=== PATIENT | female | born 1965 | race Caucasian/White ===

== ENCOUNTER 2021-06-27 05:49 | Inpatient (IN) ==
--- NOTE | 2021-06-08 08:33 | History & Physical Report ---
Date of Service June 08, 2021 date of surgery: 06/27/21 Procedure: Right Total Knee Arthroplasty Surgeon: Terry William Assessment & Plan (1) Arthritis of right knee: Plan: Risks and benefits of procedure discussed in detail today, patient would like to proceed with a right total knee replacement at [facility] as scheduled. Will place on ASA 81mg po bid x 1 month post op, f/u 2 weeks post op for routine post- operative care and x-ray, sooner if having any problems. will make arrangements for HHPT at the time of discharge. At this point in time, has failed conservative measures and would like to proceed with surgical intervention. she will receive her pain medications from Dr Prakash Sandoval ([phone]) for her post op meds. The risks and benefits have been discussed including, but not limited to, risk of infection, nerve injury, stiffness, loss of motion, failure to improve, etc. Reasonable outcomes and options of treatment were discussed. An explanation of appropriate alternatives to the procedure that may be advantageous were discussed and their risks and benefits, as well as the risks and benefits of not proceeding with treatment. I offered to answer any additional inquiries concerning the treatment involved. All the patient's questions were answered. The patient is agreeable, understanding of the treatment plan and alternatives, and wishes to proceed with the treatment plan. History of Present Illness Chief Complaint: right knee pain Primary Care Provider: Birgit Penaloza MD Елена is a 56 year old female who complains of right knee pain, presents for pre-op evaluation prior to a right total knee replacement by Dr William at [facility]. she complains of pain, decreased range of motion, instability and stiffness in her right knee. Currently she states that the symptoms are moderate-severe and describes it as aching, sharp and throbbing. The symptoms are aggravated by ascending stairs, daily activities, first steps while awake walking. Prior NSAIDs include IBU and Aleve. She states that she has been treated with previous injections in the past without much relief, she is unsure if this was visco or cortisone. Allergies Allergy/AdvReac Type Severity Reaction Status Date / Time naloxone Allergy Hives Verified 03/28/21 14:29 Home Medications Medication Instructions Recorded Confirmed Type albuterol sulfate 90 mcg/actuation 1 inh INHALATION QID PRN 03/28/21 03/28/21 History aerosol inhaler aspirin 81 mg tablet,delayed 81 mg PO QAM 03/28/21 03/28/21 History release buprenorphine HCl 8 mg sublingual 8 mg SUBLINGUAL UD 03/28/21 03/28/21 History tablet furosemide 20 mg tablet (Lasix) 20 mg PO DAILY PRN 03/28/21 03/28/21 History multivitamin 1 tab PO QAM 03/28/21 03/28/21 History Past Med/Surg History Medical History Anxiety and depression Asthma rare use of PRN inh Bipolar disorder, manic Chronic UTI History of sleep apnea resolved with wt loss Osteoarthritis PTSD (post-traumatic stress disorder) Surgical History History of carpal tunnel release History of colonoscopy History of elbow surgery Rt History of esophagogastroduodenoscopy (EGD) History of gastric bypass History of hand surgery mult Rt History of tonsillectomy and adenoidectomy History of tubal ligation Social History Smoking Status: Current every day smoker Cigarettes Per Day: 5; Second Hand Exposure: No; Hx Alcohol Use: No Hx Substance Use: No (subutex for pain management per pt report) Preferred Language: Lithuanian Communication Ability: Effective Doctor Of Nurse Anesthesia Practice Required: No Beliefs That Will Affect Care: None Current Living Situation: Alone Feels Safe at Home: Yes Assistive Devices: Crutches and Denture - Upper Review of Systems Review of Systems: All systems reviewed & are unremarkable except as noted in HPI & below Constitutional: no fever, no chills and no sweats Respiratory: no cough and no dyspnea Cardiovascular: no chest pain, no dyspnea and no orthopnea Gastrointestinal: no abdominal pain, no nausea and no vomiting Musculoskeletal: as per Subjective / HPI Physical Exam Physical Exam: HT: 5ft 5in WT: 95kg Constitutional: WD/WN, vitals as above no acute distress Respiratory: normal respiratory effort, lungs clear to auscultation no respiratory distress, no labored breathing and does not use accessory muscles Cardiovascular: RRR, no murmur, no edema Gastrointestinal (Abdomen): normal bowel sounds, soft, nontender, no hepatosplenomegaly Musculoskeletal: Knee: + knee abnormal to inspection (RIGHT KNEE), + effusion (+1 effusion), + limited ROM of knee (ROM 0/3/110), + knee ROM with crepitation, + joint line tenderness (medial joint line) and + Sarah's sign positive; no deformity, no skin erythema, no ecchymosis, no valgus laxity, no varus laxity, anterior drawer test negative, Megha's sign negative and pivot shift test negative Results & Data Results & Data ([facility]) Diagnostic Findings Right Knee X-ray: Right knee series showing degenerative changes to the right knee, narrowing of the lateral compartment and patello-femoral joint with patellar spurring noted, osteophyte formation and subchondral sclerosis noted. no acute bony pathology noted.
--- NOTE | 2021-06-22 21:54 | Anesthesiology Consultation ---
Date of Service June 22, 2021 Assessment & Plan (1) Encounter for pre-operative examination: - COVID screening: Per assessment on 06/22: No known COVID-19 positive contacts or current COVID-19 related symptoms. Travel screen negative. Patient was Covid p ositive 04/05 (S report scanned into [employer]). Symptoms at time: runny nose, headache, fever > resolved. Surgeon arranging preop COVID testing. Awaiting results. - PCP office visit (06/12/21): "Pt has revised cardiac index score of No Risk Factors- 0.4%" Chart Review Chart Review: Acceptable Risk for Surgery and Patient NOT seen in Pre Admission Testing History Surgery Operation Date: 06/27/21 11:30 Proposed Procedures p Right Total Knee Arthroplasty - Terry William DO Height/Weight Height: 5 ft 5 in Weight: 92.533 kg Allergies Allergy/AdvReac Type Severity Reaction Status Date / Time naloxone Allergy Hives Verified 06/22/21 13:47 Medications Home Medications Medication Instructions Recorded Confirmed Last Taken albuterol sulfate 90 mcg/actuation 1 inh INHALATION QID PRN 03/28/21 06/22/21 Unknown aerosol inhaler aspirin 81 mg tablet,delayed 81 mg PO QAM 03/28/21 06/22/21 Unknown release buprenorphine HCl 8 mg sublingual 8 mg SUBLINGUAL UD 03/28/21 06/22/21 Unknown tablet furosemide 20 mg tablet (Lasix) 20 mg PO DAILY PRN 03/28/21 06/22/21 Unknown multivitamin 1 tab PO QAM 03/28/21 06/22/21 Unknown Past Medical History Medical History Anxiety and depression Asthma Bipolar disorder, manic Chronic UTI History of COVID-19 Dx 04/05/21 > symptoms at time: runny nose, headache, fever > resolved History of sleep apnea "Resolved" with weight loss Osteoarthritis PTSD (post-traumatic stress disorder) Past Surgical History Surgical History History of carpal tunnel release History of colonoscopy History of elbow surgery Rt History of esophagogastroduodenoscopy (EGD) History of gastric bypass History of hand surgery mult Rt History of tonsillectomy and adenoidectomy History of tubal ligation Social History Smoking Status: Current every day smoker tobacco type: cigarettes Smoking cigarettes per day: 3 cigs per day Do You Dip or Chew Tobacco: No Hx Alcohol Use: No Hx Substance Use: No substance use type: does not use Testing Laboratory Results 06/12/21 WBC 6.64 H/H 10.3/35.5 PLATELETS 335 HGBA1C 6.4% SODIUM 140 POTASSIUM 4.4 CHLORIDE 103 CO2 26 BUN 9 CREATININE 0.8 GLUCOSE 99 PT 12.9 PTT 32 INR 0.95 UA small leuk est, negative nitrite Electrocardiogram Date: 01/15/21 Findings: + NSR @ (72)
[2021-06-27] MEDS ORDERED: GABAPENTIN 600 MG DOSE PO SCH (06:00)
[2021-06-27] MEDS ORDERED: FAMOTIDINE 20 MG TAB PO SCH (06:00)
[2021-06-27] MEDS ORDERED: ceFAZolin 2000MG 2,000 MG/15 ML SYR IV SCH (06:00)
[2021-06-27] MEDS ORDERED: ROPIVACAINE 0.5% HCL/PF 150 MG, BUPIVACAINE 0.75% MPF 20 ML, EPINEPHrine 30MG/30ML (OR ... INSTIL SCH (06:00)
[2021-06-27] MEDS ORDERED: TRANEXAMIC ACID 1,000 MG **IV Pre-op IV SCH (06:00)
[2021-06-27] MEDS ORDERED: oxyCODONE HCL 10 MG TABCR (OxyCONTIN) PO SCH (06:00)
[2021-06-27] MEDS ORDERED: ACETAMINOPHEN 500 MG TAB PO SCH (06:00)
[2021-06-27] MEDS ORDERED: LR 500ML BOLUS, THEN 15ML/HR IV SCH (06:00)
[2021-06-27] MEDS ORDERED: TRANEXAMIC ACID 1,000 MG **IV Intra-op IV SCH (06:00)
[2021-06-27] MEDS ORDERED: METOCLOPRAMIDE HCL 10 MG TABLET PO SCH (06:00)
[2021-06-27] MEDS ORDERED: LIDOCAINE 2% 2 ML VIAL/AMP(20MG/ML) INFIL ONE (06:56)
[2021-06-27] MEDS ORDERED: fentaNYL citrate 100 MCG/2 ML VIAL ONE ×2 (06:56→09:48)
[2021-06-27] MEDS ORDERED: PROPOFOL IV EMULSION 10 MG/ML 20 ML VIAL IV ONE (06:56)
[2021-06-27] MEDS ORDERED: MIDAZOLAM HCL 1 MG/ML 2ML VIAL ONE (06:56)
--- NOTE | 2021-06-27 07:29 | History & Physical Bridge Note ---
Date of Service June 27, 2021 History & Physical Bridge Note I have examined the patient, reviewed the History & Physical and in the interval since the performance of the History & Physical I have noted the following changes of clinical significance: no changes noted
[2021-06-27] MEDS ORDERED: ONDANSETRON INJ 2 MG/ML 2 ML VIAL IV PRN ×2 (07:59→11:29)
[2021-06-27] MEDS ORDERED: fentaNYL citrate 100 MCG/2 ML VIAL IV PRN (07:59)
[2021-06-27] MEDS ORDERED: ePHEDrine sulfate 50 MG/ML AMP IV PRN (07:59)
[2021-06-27] MEDS ORDERED: ATROPINE SULFATE 0.1 MG/ML 10ML SYR IV PRN (07:59)
[2021-06-27] MEDS ORDERED: ROPIVACAINE 0.5% 5 MG/ML 30 ML VIAL ONE (08:14)
[2021-06-27] MEDS ORDERED: ORTHO JOINT ANESTHETIC ONE (08:35)
--- NOTE | 2021-06-27 09:46 | Operative Report ---
Post Operative Report Pre & Post Diagnosis Operation Date: 06/27/21 07:55 Pre-Op Diagnosis: Right Knee Osteoarthritis Post-Op Diagnosis: Right Knee Osteoarthritis I identified the patient and participated in the time-out.: Yes Procedure Operation Date: 06/27/21 07:55 Actual Procedures p Right Total Knee Arthroplasty utilizing [employer] jourbaldwin 2 patient matched total knee arthroplasty size femur 5 right tibia 5 right 10 mm polytwenty 9 oval patella- Terry William DO Surgeon Terry William DO Waste Elimination Dain ROSSI Estimated Blood Loss 5 Findings Consistent with Post-Op Diagnosis Patient presents with severe end-stage tricompartmental degenerative joint disease varus alignment subchondral sclerosis marginal osteophytes eburnated [id number] with varus alignment no response to conservative management Specimens Bone and cartilage Drains Medium bore Hemovac Anesthesia Type MAC Spinal Regional Disposition Accompanied Patient To Recovery: No Disposition: Recovery Room Indications Patient presents with severe end-stage tricompartmental degenerative joint disease right knee no response to conservative management the patient is a failed attempted conservative management occluding physical therapy anti- inflammatories relative rest activity modification corticosteroid injection viscosupplementation the above intraoperative findings are noted Description of Procedure After proper prepping and draping of the Right lower extremity anterior midline incision was made over the region of the extensor extensor mechanism after meticulous hemostasis was obtained and maintained in subcutaneous tissues a medial parapatellar incision was made The patella was subluxed lateralward the medial lateral gutter were cleaned from any hypertrophic synovitis and scar tissue of the distal femoral block was placed and the distal femoral osteotomy cut was made subsequently the chamfers anterior and posterior osteotomy cuts were made utilizing the 4-in-1 block the tibia was subsequently subluxed anteriorward medial and ateral meniscal remnants were excised in their entirety remnants of the anterior and posterior cruciate ligaments were excised in their entirety excellent exposure of the proximal tibia was obtained the tibial osteotomy guide was placed on the proximal tibial osteotomy cut was made once again the knee was irrigated with copious amounts of sterile saline solution the patella was subsequently everted lateralward thickened scar tissue around the patella was removed the patella was subsequently cut utilizing a freehand technique and was drilled prepared for final preparation and placement of patella socially flexion-extension gaps were checked and the equal and symmetric trials were placed to the appropriate femoral and tibial trials with poly-spacer being placed for equal flexion and extension gaps and full range of motion including extension to 0 and flexion to 140 the trial components after having been taken to recovery range of motion was subsequently removed meticulous hemostasis was obtained and maintained subsequently a knee block injection of joint cocktail including ropivacaine 0.5% 150 mg. Bupivacaine 0.5% epinephrine 1-200,030 mL's toradol 30 mg dexamethasone 4 mg ketamine 10 mg clonidine 100 micrograms normal saline solution 30 mg was infiltrated into the soft tissues of the posterior knee medial lateral gutters and periosteal synovium special attention was paid to protect neurovascular structures at all times subsequently trial components having been removed the knee was irrigated with sterile saline solution. debris was removed the proximal tibia was subsequently prepared and was made ready for the placement of the tibial component tibial component was also cemented and tamped into position the femoral component was subsequently placed and cemented in the position the patellar component was subsequently cemented in position because hemostasis once again obtained and maintained wound having been thoroughly irrigated with debridement and debridement lavage was performed as well as a medial parapatellar incision closed with #1 Vicryl in interrupted fashion subcutaneous was closed with #2 Vicryl skin was closed with skin clips. PA-C was necessary for prepping and drapping as well as wound closure of deep fascia Sub cutaneous tissue and skin and was necessary for the case. A sterile compressive dressing was placed patient was taken to recovery in stable condition of report dictated by Stewart I attest to the content of the Intraoperative Record and any orders documented therein. Any exceptions are noted below.Due to the complex nature of the procedure, the entire surgery was performed with the operational assistance of [PAC Name]. The liaison inspection laboratory assistant, under direct supervision, was involved in the actual performance of all aspects of the surgical procedure including hemostasis, tissue retraction and incision, instrument management, patient positioning, and wound closure. I attest to the content of the Intraoperative Record and any orders documented therein. Any exceptions are noted below.
[2021-06-27] MEDS ORDERED: ONDANSETRON INJ 2 MG/ML 2 ML VIAL ONE (09:47)
[2021-06-27] MEDS ORDERED: DEXAMETHASONE SOD INJ 4 MG/ML VIAL ONE (09:47)
[2021-06-27] MEDS ORDERED: GLYCOPYRROLATE 0.2 MG/ML VIAL ONE (09:58)
--- NOTE | 2021-06-27 11:03 | XRay Report ---
XR knee RT 1 or 2V routine CLINICAL HISTORY: Surgical Post Op TECHNIQUE: 2 views of the right knee were obtained. Comparison: None available at the time of this dictation. FINDINGS: Patient is status post total knee arthroplasty. Electronic device projects over the knee in multiple projections. Joint spaces are well-preserved. No joint effusion is seen. No soft tissue abnormality i s seen. IMPRESSION: No acute abnormality is seen in this postoperative image. ACT 112: Negative or not required by law. Electronically signed by: Daniel Keller M.D. 06/27/2021 11:01 AM
--- NOTE | 2021-06-27 11:19 | Anesthesiology Progress Note ---
Date of Service June 27, 2021 Anesthesia Post Procedure Vital Signs Vital Signs: Temp Pulse Pulse Resp BP Pulse Ox 06/27/21 11:10 80 16 132/75 95 06/27/21 11:00 97.2 F L 62 14 127/75 98 06/27/21 10:50 60 14 132/94 100 06/27/21 10:40 67 15 114/75 100 06/27/21 10:30 97.2 F L 72 15 116/68 100 06/27/21 06:00 99.1 F 72 20 144/65 H 97 Pain Intensity Right Knee: Pain Intensity: 5 Transfer of Care Handoff Completed per policy Notes Mental Status: alert / awake / arousable and participated in evaluation Patient Amnestic to Procedure: Yes Nausea / Vomiting: adequately controlled Pain: adequately controlled Airway Patency, RR, SpO2: stable & adequate BP & HR: stable & adequate Hydration State: stable & adequate Anesthetic Complications: no major complications apparent and Pt Satisfied with anesthetic care
[2021-06-27] MEDS ORDERED: MAGNESIUM HYDROXIDE SUSP 30 ML UDC PO PRN (11:29)
[2021-06-27] MEDS ORDERED: ALBUTEROL HFA 8 GM INHALER INH PRN (11:29)
[2021-06-27] MEDS ORDERED: bisacodyL 10 MG SUPP PR PRN (11:29)
[2021-06-27] MEDS ORDERED: FUROSEMIDE 20 MG TAB PO PRN (11:29)
[2021-06-27] MEDS: SODIUM CHLORIDE 0.9% 1000ML 1,000 ML IV SCH ×2 (12:27→22:30)
[2021-06-27] MEDS: KETOROLAC 30 MG/ML VIAL IV SCH ×2 (13:05→18:29)
[2021-06-27] MEDS: ACETAMINOPHEN 500 MG TAB PO SCH ×2 (13:34→21:55)
[2021-06-27] MEDS: ceFAZolin 2000MG 2,000 MG/15 ML SYR IV SCH (16:51)
[2021-06-27] MEDS: oxyCODONE HCL IR 5 MG TAB (IMMEDIATE RELEASE) PO PRN (19:40)
[2021-06-27] MEDS: ASPIRIN 81 MG ECTAB PO SCH (20:39)
[2021-06-27] MEDS: SENNA 8.6 MG TAB PO SCH (20:39)
[2021-06-27] MEDS: DOCUSATE SODIUM 100 MG CAP PO SCH (20:39)
[2021-06-28] MEDS: KETOROLAC 30 MG/ML VIAL IV SCH ×2 (01:19→05:59)
[2021-06-28] MEDS: ceFAZolin 2000MG 2,000 MG/15 ML SYR IV SCH (01:19)
[2021-06-28] MEDS: oxyCODONE HCL IR 5 MG TAB (IMMEDIATE RELEASE) PO PRN ×5 (03:40→19:40)
[2021-06-28] MEDS: ACETAMINOPHEN 500 MG TAB PO SCH ×3 (05:59→22:28)
[2021-06-28 06:34] LABS: Hematocrit (blood only) 28.8 % (37-47); Hemoglobin 8.9 g/dL (12.0-16.0); Mean Corpuscular Hemoglobin 23.7 pg (25-34); Mean Corpuscular Hgb Conc 30.9 g/dL (32-36); Mean Corpuscular Volume 76.8 fL (80-100); Mean Platelet Volume 10.1 fL (7.4-10.4); Platelet Count 307 K/uL (130-400); RDW Coefficient of Variation 17.8 % (11.5-14.5); RDW Standard Deviation 50.5 fL (36.4-46.3); Red Blood Count 3.75 M/uL (4.2-5.4); White Blood Count 12.09 K/uL (4.8-10.8)
[2021-06-28 06:56] LABS: Calcium 7.9 mg/dl (8.5-10.1); Creatinine Clr Calc Pharmacy 93.4 ml/min; Est GFR (African American) 100.7 ml/min; Est GFR (Non-African American) 86.9 ml/min; Potassium 3.6 mmol/L (3.5-5.1)
[2021-06-28] MEDS: DOCUSATE SODIUM 100 MG CAP PO SCH ×2 (07:34→19:41)
[2021-06-28] MEDS: ASPIRIN 81 MG ECTAB PO SCH ×2 (07:35→19:41)
[2021-06-28] MEDS: MULTIVITAMIN TAB PO SCH (07:35)
--- NOTE | 2021-06-28 09:32 | Orthopedic Progress Note ---
Date of Service June 28, 2021 Assessment & Plan (1) Arthritis of right knee: Plan: Postop day 1 status post right total knee arthroplasty PT/OT protocols. Weightbearing as tolerated. DVT prophylaxis- ASA bid, SCD's, VIC's. Pt has h/o gastric bypass but states she does take one baby asa daily. We discussed that she would need to take one tablet in the AM and PM for her DVT prophylaxis. Pt feels that won't be a problem but will call the office if she is having gastric upset. Pain management -she has long-term history with pain management. She has been taking Subutex for approximately 7 years and is in the process of weaning off. She does have a pain contract. She has discussed this upcoming surgery with her pain management team. They are okay with us initially writing for her pain control at this time. Patient has an appointment with her pain management team on the of this month. That point time, they will continue her pain management from there. DC planning- Home with home health services Admission and Anticipated Discharge Date Admission Date: June 27, 2021 Subjective Postop day 1 Patient currently sitting up eating breakfast. No complaints this morning. Pain is controlled. Denies shortness of breath, chest pain, lightheadedness. Physical Exam Physical Exam: Dressings are C/D/I. Calves soft,NT. NV intact. Toes mobile. Good DF/PF noted. Results & Data ([facility]) Vital Signs (Past 12 Hours) Vital Signs Temp Pulse Pulse Resp BP Pulse Ox 06/28/21 07:45 37 C 60 18 134/62 98 06/28/21 03:19 36.6 C 62 120/68 94 06/27/21 22:43 37 C 67 20 101/62 94 Laboratory Results Laboratory Results WBC 12.09 K/uL (4.8-10.8) H 06/28/21 06:03 RBC 3.75 M/uL (4.2-5.4) L 06/28/21 06:03 Hgb 8.9 g/dL (12.0-16.0) L 06/28/21 06:03 Hct 28.8 % (37-47) L 06/28/21 06:03 MCV 76.8 fL (80-100) L 06/28/21 06:03 MCH 23.7 pg (25-34) L 06/28/21 06:03 MCHC 30.9 g/dL (32-36) L 06/28/21 06:03 RDW Std Deviation 50.5 fL (36.4-46.3) H 06/28/21 06:03 RDW Coeff of Emily 17.8 % (11.5-14.5) H 06/28/21 06:03 Plt Count 307 K/uL (130-400) 06/28/21 06:03 MPV 10.1 fL (7.4-10.4) 06/28/21 06:03 Sodium 139 mmol/L (136-145) 06/28/21 06:03 Potassium 3.6 mmol/L (3.5-5.1) 06/28/21 06:03 Chloride 110 mmol/L (98-107) H 06/28/21 06:03 Carbon Dioxide 23 mmol/L (21-32) 06/28/21 06:03 Anion Gap 6 (3-11) 06/28/21 06:03 BUN 10 mg/dl (6-23) 06/28/21 06:03 Creatinine 0.77 mg/dl (0.6-1.2) 06/28/21 06:03 Est Cr Clr Drug Dosing 93.4 ml/min 06/28/21 06:03 Est GFR ( Amer) 100.7 ml/min 06/28/21 06:03 Est GFR (Non-Af Amer) 86.9 ml/min 06/28/21 06:03 BUN/Creatinine Ratio 13.0 (10-20) 06/28/21 06:03 Glucose 124 mg/dl (70-99(Fasting)) H 06/28/21 06:03 Calcium 7.9 mg/dl (8.5-10.1) L 06/28/21 06:03 SARS-CoV-2, RNA, NAAT NEGATIVE (NEGATIVE) 06/27/21 06:00 Blood Type O Positive 06/27/21 06:02 Antibody Screen NEGATIVE 06/27/21 06:02 Impressions Knee X-Ray 06/27/21 10:39 XR knee RT 1 or 2V routine CLINICAL HISTORY: Surgical Post Op TECHNIQUE: 2 views of the right knee were obtained. Comparison: None available at the time of this dictation. FINDINGS: Patient is status post total knee arthroplasty. Electronic device projects over the knee in multiple projections. Joint spaces are well-preserved. No joint effusion is seen. No soft tissue abnormality is seen. IMPRESSION: No acute abnormality is seen in this postoperative image. ACT 112: Negative or not required by law. Electronically signed by: Daniel Keller M.D. 06/27/2021 11:01 AM
[2021-06-28] MEDS: SENNA 8.6 MG TAB PO SCH (19:42)
[2021-06-28] MEDS: HYDROmorphone INJ 0.5 MG/0.5 ML SYR IV PRN (20:37)
[2021-06-29] MEDS: oxyCODONE HCL IR 5 MG TAB (IMMEDIATE RELEASE) PO PRN ×4 (00:01→17:59)
[2021-06-29] MEDS: HYDROmorphone INJ 0.5 MG/0.5 ML SYR IV PRN ×4 (00:49→21:47)
[2021-06-29] MEDS: ACETAMINOPHEN 500 MG TAB PO SCH ×3 (05:08→21:44)
[2021-06-29 06:32] LABS: Basophils # (auto) 0.01 K/uL (0-0.2); Basophils % (auto) 0.1 %; Eosinophils # (auto) 0.16 K/uL (0-0.5); Eosinophils % (auto) 1.7 %; Hematocrit (blood only) 29.1 % (37-47); Immature Granulocytes # (auto) 0.02 K/uL (0.00-0.02); Immature Granulocytes % (auto) 0.2 %; Lymphocytes % (auto) 23.4 %; Mean Corpuscular Hemoglobin 23.7 pg (25-34); Mean Corpuscular Hgb Conc 30.9 g/dL (32-36); Mean Corpuscular Volume 76.6 fL (80-100); Mean Platelet Volume 10.1 fL (7.4-10.4); Monocytes # (auto) 1.15 K/uL (0.11-0.59); Monocytes % (auto) 12.2 %; Neutrophils # (auto) 5.85 K/uL (1.4-6.5); Neutrophils % (auto) 62.4 %; Platelet Count 283 K/uL (130-400); RDW Standard Deviation 51.3 fL (36.4-46.3); White Blood Count 9.39 K/uL (4.8-10.8)
--- NOTE | 2021-06-29 06:50 | Orthopedic Progress Note ---
Date of Service June 29, 2021 Assessment & Plan (1) Arthritis of right knee: Plan: Postop day 2 status post right total knee arthroplasty PT/OT protocols. Weightbearing as tolerated. DVT prophylaxis- ASA bid, SCD's, VIC's. Pt has h/o gastric bypass but states she does take one baby asa daily. We discussed that she would need to take one tablet in the AM and PM for her DVT prophylaxis. Pt feels that won't be a problem but will call the office if she is having gastric upset. Pain management -she has long-term history with pain management. She has been taking Subutex for approximately 7 years and is in the process of weaning off. She does have a pain contract. She has discussed this upcoming surgery with her pain management team. They are okay with us initially writing for her pain control at this time. Patient has an appointment with her pain management team on the of this month. That point time, they will continue her pain management from there. DC planning- Home with home health services. will reassess her pain after PT today for poss d/c home with HHPT Admission and Anticipated Discharge Date Admission Date: June 27, 2021 Subjective Postop day 2 Patient currently laying in bed, tearful this am due to pain and anticipation of pain with PT today. Denies shortness of breath, chest pain, lightheadedness. Physical Exam Physical Exam: Vital Signs Temp 36.7 C 06/28/21 21:35 Pulse 82 06/28/21 21:35 Resp 18 06/28/21 21:35 BP 165/79 H 06/28/21 21:35 Pulse Ox 97 06/28/21 21:35 Intake & Output 06/28/21 06/28/21 06/29/21 06:59 18:59 06:59 Intake Total 1755 / 2860 1280 / 1800 520 / 1800 Output Total 525 / 2385 320 / 420 100 / 420 Balance 1230 / 475 960 / 1380 420 / 1380 Intake: IV 795 / 1100 885 / 885 Sodium Chlorid e 0.9% 1000ML 1, 795 / 1000 885 / 885 000 ml @ 100 m ls/hr IV .Q10H JOANA Rx#:[id number] Oral 960 / 960 395 / 915 520 / 915 Output: Urine 400 / 2200 200 / 200 Drain Output 125 / 180 120 / 220 100 / 220 Right Knee Hem ovac 125 / 180 120 / 220 100 / 220 Other: # Unmeasured Voi ds 1 3 Dressings are C/D/I. Calves soft,NT. NV intact. Toes mobile. Good DF/PF noted. Results & Data ([facility]) Vital Signs (Past 12 Hours) Vital Signs Temp Pulse Resp BP Pulse Ox 06/28/21 21:35 36.7 C 82 18 165/79 H 97
[2021-06-29] MEDS: ASPIRIN 81 MG ECTAB PO SCH ×2 (08:14→19:49)
[2021-06-29] MEDS: DOCUSATE SODIUM 100 MG CAP PO SCH ×2 (08:14→19:49)
[2021-06-29] MEDS: MULTIVITAMIN TAB PO SCH (08:15)
[2021-06-29] MEDS ORDERED: oxyCODONE HCL IR 5 MG TAB (IMMEDIATE RELEASE) PO PRN (12:16)
--- NOTE | 2021-06-29 13:02 | Pain Management Consultation ---
Date of Consultation June 29, 2021 Assessment & Plan (1) History of total knee arthroplasty: (2) Chronic pain: Oxycodone at 10mg x 2 hours is not adequately controlling the pain from the knee replacement. She has been off of Subutex for 4 days prior to the knee replacement. Given the long half life of Subutex the medication is still leaving her system. In her current circumstances it is reasonable to resume the Subutex for her baseline pain and continue the Oxycodone 10mg x 4 hours PRN breakthrough pain. * Patient will be resumed on Subutex for chronic pain complaints. * Oxycodone will remain at 10mg x 4 hours if needed for pain relief. Thank you for the consultation. History of Present Illness Attending Physician: Terry William, History of Present Illness This is a 56 year old female that had a right knee arthroplasty performed on 06/27/[address] William. She has been on Subutex 8mg 2 1/2 SL daily for chronic pain for the last 16 years. In preparation for the knee replacement she was instructed to discontinue the Subutex 06/23/21 and take oral Percocet for the few days leading up to the surgery. Postoperatively the pain is not controlled with Oxycodone 10mg x 4 hours PRN pain. Pain is currently 8/10. Pain Assessment Full Body Front + Back: 1. Allergies Allergy/AdvReac Type Severity Reaction Status Date / Time naloxone Allergy Hives Verified 06/27/21 06:08 Home Medications Medication Instructions Recorded Confirmed Type albuterol sulfate 90 mcg/actuation 1 inh INHALATION QID PRN 03/28/21 06/27/21 History aerosol inhaler aspirin 81 mg tablet,delayed 81 mg PO QAM 03/28/21 06/27/21 History release buprenorphine HCl 8 mg sublingual 8 mg SUBLINGUAL UD 03/28/21 06/27/21 History tablet furosemide 20 mg tablet (Lasix) 20 mg PO DAILY PRN 03/28/21 06/27/21 History multivitamin 1 tab PO QAM 03/28/21 06/27/21 History oxycodone-acetaminophen 10 mg-325 1 tab PO Q4H PRN 06/27/21 06/27/21 History mg tablet (Percocet) Patient History Medical History Anxiety and depression Asthma Bipolar disorder, manic Chronic UTI History of COVID-19 Dx 04/05/21 > symptoms at time: runny nose, headache, fever > resolved History of sleep apnea "Resolved" with weight loss Osteoarthritis PTSD (post-traumatic stress disorder) Surgical History History of carpal tunnel release History of colonoscopy History of elbow surgery Rt History of esophagogastroduodenoscopy (EGD) History of gastric bypass History of hand surgery mult Rt History of tonsillectomy and adenoidectomy History of tubal ligation Social History Smoking Status: Current every day smoker Cigarettes Per Day: 3 cigs per day; Second Hand Exposure: No; Do You Dip or Chew Tobacco: No; Tobacco Cessation Education Requested by Patient: No Hx Alcohol Use: No Hx Substance Use: No Preferred Language: Kosovan Communication Ability: Effective Communications Field Technician Required: No Beliefs That Will Affect Care: None Current Living Situation: Alone Other Information That Helps Us Care for You: No Feels Safe at Home: Yes Safety Concerns: Feels Safe At This Time Assistive Devices: None Physical Exam Physical Exam: GENERAL: This is a 56 year old female. Appears in moderate pain with right leg movement. HEAD/FACE: Normocephalic and atraumatic. EYES: No drainage or conjunctival injection. ENT: Nose without bleeding or discharge. Oral mucosa moist. NECK: Full ROM without apparent pain. No swelling or masses noted. RESPIRATORY: Patient with unlabored breathing. No signs of respiratory distress. CHEST/AXILLA: Chest movement symmetrical. No deformities noted. SKIN: [place], warm and dry. No rash noted. MS/EXTREMITY: No swelling, no deformities. + right knee replacement in knee brace. NEURO: Alert and appears oriented. Speech is fluent. Cranial Nerves are grossly intact. PSYCH: Alert, pleasant, affect is calm
[2021-06-29] MEDS: buprenorphine HCL 8 MG SUBL SL SCH ×2 (13:36→19:52)
[2021-06-29] MEDS: SENNA 8.6 MG TAB PO SCH (19:49)
[2021-06-30] MEDS: oxyCODONE HCL IR 5 MG TAB (IMMEDIATE RELEASE) PO PRN ×3 (00:54→12:44)
[2021-06-30] MEDS: HYDROmorphone INJ 0.5 MG/0.5 ML SYR IV PRN (02:44)
[2021-06-30] MEDS: ACETAMINOPHEN 500 MG TAB PO SCH ×2 (05:05→12:46)
[2021-06-30 07:11] LABS: Hematocrit (blood only) 30.3 % (37-47); Hemoglobin 9.8 g/dL (12.0-16.0); Mean Corpuscular Hemoglobin 24.8 pg (25-34); Mean Corpuscular Hgb Conc 32.3 g/dL (32-36); Mean Corpuscular Volume 76.7 fL (80-100); Platelet Count 314 K/uL (130-400); RDW Standard Deviation 51.2 fL (36.4-46.3); Red Blood Count 3.95 M/uL (4.2-5.4); White Blood Count 11.12 K/uL (4.8-10.8)
[2021-06-30 07:45] LABS: Basophils # (auto) 0.01 K/uL (0-0.2); Basophils % (auto) 0.1 %; Eosinophils # (auto) 0.27 K/uL (0-0.5); Eosinophils % (auto) 2.4 %; Immature Granulocytes # (auto) 0.03 K/uL (0.00-0.02); Immature Granulocytes % (auto) 0.3 %; Lymphocytes # (auto) 2.43 K/uL (1.2-3.4); Lymphocytes % (auto) 21.9 %; Microcytosis Present; Monocytes # (auto) 1.57 K/uL (0.11-0.59); Monocytes % (auto) 14.1 %; Neutrophils # (auto) 6.81 K/uL (1.4-6.5); Neutrophils % (auto) 61.2 %
[2021-06-30] MEDS: MULTIVITAMIN TAB PO SCH (09:05)
[2021-06-30] MEDS: ASPIRIN 81 MG ECTAB PO SCH (09:05)
[2021-06-30] MEDS: DOCUSATE SODIUM 100 MG CAP PO SCH (09:05)
[2021-06-30] MEDS: buprenorphine HCL 8 MG SUBL SL SCH (09:09)
--- NOTE | 2021-06-30 09:13 | Orthopedic Progress Note ---
Date of Service June 30, 2021 Assessment & Plan (1) Arthritis of right knee: Plan: Postop day 3 status post right total knee arthroplasty PT/OT protocols. Weightbearing as tolerated. DVT prophylaxis- ASA bid, SCD's, VIC's. Pt has h/o gastric bypass but states she does take one baby asa daily. We discussed that she would need to take one tablet in the AM and PM for her DVT prophylaxis. Pt feels that won't be a problem but will call the office if she is having gastric upset. Pain management-patient was seen by the pain management service yesterday. Recommendations appreciated. Patient restarted on her Subutex with use of oxycodone 5 to 10 mg p.o. every 4 hours as needed breakthrough pain. Plans to try and wean off of her Subutex at this point in time was felt to be inhibiting her process as well and plans will be now to resume her Subutex, continue the oxycodone for breakthrough pain, and at a more appropriate time after the patient has healed, begin her weaning off process. She states that she has enough medication at home concerning her Subutex. She has an appointment with her pain management team on the of this month. We will plan on writing a prescription for her oxycodone during the 2-week postoperative. 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 DC planning- Home with home health services. Plan for discharge to home today after PT. Admission and Anticipated Discharge Date Admission Date: June 27, 2021 Subjective Postop day 3 Patient currently sitting up in bed talking on the phone. Patient is in much better spirits today. She states that her pain is controlled quite well and she did not have to use much in the way of breakthrough pain medication last night. No new complaints today. Patient is hoping to go home. Physical Exam Physical Exam: Kalli dressing is clean, dry, and intact. Functioning well. Calves are soft and nontender. Neurovascular is intact. Toes are mobile. She has some mild upper thigh pain likely secondary to tourniquet effect. Results & Data ([facility]) Vital Signs (Past 12 Hours) Vital Signs Temp Pulse Resp BP Pulse Ox 06/30/21 07:57 36.9 C 79 14 144/90 H 97 06/29/21 23:29 36.6 C 95 H 17 145/85 H 96
== END 2021-06-30 16:11 | disposition home health service (06) | DRG 470 ==
LOC: ASU 05:49 → 3E 05:49 → OBSVTOIN 10:39